=== PATIENT | female | born 1980 ===

== ENCOUNTER 2017-02-25 21:47 | Emergency (ER) | payer SELFPAY ==
[2017-02-25 21:58] VITALS: BP 133/85; PULSE 76; TEMP 98.2; O2SAT 99
[2017-02-25] MEDS ORDERED: Amoxicillin-Clav 875-125 mg Tab PO STA (22:29)
--- NOTE | 2017-02-25 22:30 | C.PDOC ---
History Of Present Illness 37 yo female come in for evaluation of dog bite sustained today at 7PM. As per pt, " was caring my dog when put her on ground, she just bite me to my nose". Pt admits, dog immunization is UTD including rabies. Pt denies headache, dizziness, visual changes, nasal discharge, dyspnea, SOB, denies any other active complaints . Ambulate to ED for evaluation, not in any apparent distress. Pt admits, cleaned wound at home after the accident. Time Seen by Provider: 02/25/17 22:07 Chief Complaint (Nursing): Bite History Per: Patient Onset/Duration Of Symptoms: Sudden Onset Current Symptoms Are (Timing): Still Present Past Medical History Reviewed: Historical Data, Nursing Documentation, Vital Signs Vital Signs: Last Vital Signs Temp 98.2 F 02/25/17 21:54 Pulse 76 02/25/17 21:54 Resp 16 02/25/17 21:54 BP 133/85 02/25/17 21:54 Pulse Ox 99 02/25/17 22:30 - Medical History PMH: No Chronic Diseases Surgical History: No Surg Hx Family History: States: No Known Family Hx - Social History Hx Tobacco Use: No Hx Alcohol Use: Yes Hx Substance Use: No - Immunization History Hx Tetanus Toxoid Vaccination: Yes (more than 6-7 yrs ago) Hx Influenza Vaccination: Yes Hx Pneumococcal Vaccination: No Review Of Systems Except As Marked, All Systems Reviewed And Found Negative. Constitutional: Negative for: Fever, Chills Eyes: Negative for: Vision Change, Eyelid Inflammation, Redness ENT: Positive for: Nose Pain. Negative for: Ear Pain, Ear Discharge, Nose Discharge, Mouth Swelling Gastrointestinal: Negative for: Nausea, Vomiting, Abdominal Pain Musculoskeletal: Negative for: Neck Pain, Back Pain Skin: Positive for: Lesions Neurological: Negative for: Weakness, Numbness, Altered Mental Status, Headache , Dizziness Physical Exam - Physical Exam Appears: Well, Non-toxic, No Acute Distress Skin: Normal Color, Warm, Dry, Other (1cm superficial laceration to tip of nose , mild edema and erythema, No wound draining.) Head: Atraumatic, Normacephalic Eye(s): bilateral: PERRL Ear(s): Bilateral: Normal Nose: No Flaring, No Discharge, No Epistaxis, No Deformity, Tenderness (mild tip of nose), No Septal Hematoma Oral Mucosa: Moist, No Drooling, No Trismus Tongue: Normal Appearing, No Bite Lips: Normal Appearing, No Swelling Throat: Normal Neck: Supple Cardiovascular: Rhythm Regular Respiratory: No Stridor, No Wheezing Gastrointestinal/Abdominal: Soft, No Tenderness Back: Normal Inspection Extremity: Normal ROM, No Deformity Neurological/Psych: Oriented x3, Normal Speech ED Course And Treatment O2 Sat by Pulse Oximetry: 99 Pulse Ox Interpretation: Normal Progress Note: On re-eval, pt is awake, alert, not in any apparent distress. Afebrile, hemodynamicaly stable. PulsEOx 99% RA. head: At/NC. ENT: laceration over the nose thoroughly irrigated with water, peroxide, closed with skin adhesive/steri-strips. No septal hematoma, no epistaxis, no obvious deformity. Neck: (-) midline tenderness. Neurologicaly intact. tetanus, oral abx and analgesics given. Pt has advised on course of ds. ref. to f/u with PMD in 1-2 days for re-eval. return if any worsening or new changes. Laceration - Laceration Repair nasal tip Wound Length (In cm): 1cm Description Of Wound: Linear (superficial) Wound Cleansed With: Betadine Wound Examination: Irrigated With Saline Wound Closure: Steri Strips, Skin Glue Wound Complexity: Simple Disposition Counseled Patient/Family Regarding: Diagnosis, Need For Followup, Rx Given - Disposition Referrals: [facility] [Outside] Guilherme Hines MD [Staff Provider] - Disposition: HOME/ ROUTINE Disposition Time: 22:42 Condition: STABLE Additional Instructions: keep wound clean, dry for 3-4 days, after start normally wash face with water. Take antibiotic as prescribe Follow up with PMD and /or ENT in 1-2 days for re-evaluation. Return to Ed if any worsening or new changes. Prescriptions: Amoxicillin/Clavulanate [Augmentin 875 MG-125 MG] 1 tab PO BID #14 tab Instructions: Animal Bite (ED), Skin Adhesive Care (ED) - Clinical Impression Clinical Impression: Animal bite wound
[2017-02-25] MEDS ORDERED: Amoxicillin-Clav 875-125 mg Tab PO ONE (22:32)
[2017-02-25 23:07] VITALS: RESP 20
== END 2017-02-25 23:06 | disposition home or self-care (01) ==
LOC: C.ER 21:47 → MERGE 21:47 → C.ER 23:06
DX: S01.25XA Open bite of nose, initial encounter (principal); W54.0XXA Bitten by dog, initial encounter; Y92.410 Unspecified street and highway as the place of occurrence of the external cause